=== PATIENT | female | born 2000 | race Caucasian/White ===

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

== ENCOUNTER → 2021-05-24 15:15 | Outpatient (BNVA) | payer OTHER, SELFPAY | PROVIDERS: Family Provider Pediatrics Adolescent Medicine; PCP Pediatrics Adolescent Medicine; Visit Provider Pediatrics Adolescent Medicine | DX: J02.9 Acute pharyngitis, unspecified (principal) | CPT/HCPCS: 87400 ==